=== PATIENT | female | born 1975 | race African-American/Black ===

== ENCOUNTER 2018-10-30 19:25 | Emergency (ER) | payer BC, SELFPAY ==
[2018-10-30] MEDS ORDERED: cloNIDine 0.1 MG TAB ONE (19:52)
[2018-10-30 20:18] LABS: Hemoglobin 15.7 g/dL (12.0-16.0); Mean Corpuscular HGB CONC 33.8 g/dL (32.0-36.0); Mean Corpuscular Hemoglobin 33.2 pg (27.0-31.0); Mean Corpuscular Volume 98.2 fL (78.0-98.0); Mean Platelet Volume 10.1 fL (7.4-10.4); Platelet Count 188 thou/uL (130-400); RBC Distribution Width 12.9 % (11.5-14.5); Red Blood Cell (RBC) Count 4.73 mill/uL (4.20-5.40); White Blood Cell (WBC) Count 14.2 thou/uL (4.8-10.8)
[2018-10-30 20:25] LABS: Eosinophils 5 % (0-10); Lymphocytes 46 % (21-51); MDiff Complete? YES; Monocytes 8 % (0-10); Neutrophil 41 % (42-75); Platelet Morphology Comment Appears Adequate
--- NOTE | 2018-10-30 20:31 | RAD ---
CHEST ONE VIEW: 10/30/18 HISTORY: Syncope. Headache which started this morning. COMPARISON: 11/26/11. FINDINGS: Heart size is normal. The lungs are clear. No pneumonia, edema, or pleural effusion or other acute pr ocess. IMPRESSION: No acute intrathoracic disease. POS: RRE
--- NOTE | 2018-10-30 21:01 | CT ---
HEAD CT WITHOUT IV CONTRAST: 10/30/18 HISTORY: Syncope. COMPARISON: 08/26/03. FINDINGS: No focal mass or midline shift. No intra or extra-axial hemorrhage. Minimally prominent sella turcica with appearance suggesting that of an empty or borderline empty sella. IMPRESSION: No significant acute intracranial process. No mass or bleed. Evidence for an empty or borderline empt y sella. Stable from prior study. POS: RRE
[2018-10-30 21:09] LABS: Albumin 3.7 g/dL (3.5-5.0)
[2018-10-30 21:10] LABS: Chloride 107 mmol/L (98-107); Potassium 3.9 mmol/L (3.5-5.1); Sodium 138 mmol/L (136-145)
[2018-10-30 21:11] LABS: Calcium 9.6 mg/dL (7.8-10.44)
[2018-10-30 21:12] LABS: Globulin 3.5 g/dL (2.4-3.5); Glucose 102 mg/dL (70-105); Protein, Total 7.2 g/dL (6.0-8.3)
[2018-10-30 21:13] LABS: Anion Gap 13 mmol/L (10-20); Carbon Dioxide 22 mmol/L (22-29)
[2018-10-30 21:14] LABS: Bilirubin, Total 0.4 mg/dL (0.2-1.2)
[2018-10-30 21:15] LABS: Alkaline Phosphatase 74 U/L (40-150); Calc. Creatinine Clearance 0 mL/min (70-130); Estimated GFR-MDRD 90
[2018-10-30 21:16] LABS: BUN (Urea Nitrogen) 7 mg/dL (7.0-18.7)
[2018-10-30 21:17] LABS: AST (SGOT) 42 U/L (5-34)
[2018-10-30 21:18] LABS: ALT (SGPT) 60 U/L (8-55)
== END 2018-10-30 21:32 | disposition home or self-care (01) ==
LOC: ERS 19:25
DX: I10 Essential (primary) hypertension (principal); F17.210 Nicotine dependence, cigarettes, uncomplicated
CPT/HCPCS: 36415; 70450; 71045; 80053; 83880; 84484; 85025; 93005

== ENCOUNTER 2019-02-22 01:25 | Emergency (ER) | payer SELFPAY ==
[2019-02-22 02:09] LABS: #Basophils 0.1 thou/uL (0.0-0.2); #Eosinphils 0.4 thou/uL (0.0-0.7); #Monocytes 1.2 thou/uL (0.11-0.59); #Neutrophils 5.2 thou/uL (1.40-6.50); %Basophils 0.8 % (0.0-1.0); %Monocytes 9.9 % (0.0-10.0); %Neutrophils 44.3 % (42.0-75.0); Hemoglobin 15.6 g/dL (12.0-16.0); Mean Corpuscular Volume 99.8 fL (78.0-98.0); Mean Platelet Volume 10.2 fL (7.4-10.4); Platelet Count 167 thou/uL (130-400); RBC Distribution Width 12.1 % (11.5-14.5); Red Blood Cell (RBC) Count 4.59 mill/uL (4.20-5.40); White Blood Cell (WBC) Count 11.8 thou/uL (4.8-10.8)
[2019-02-22 02:25] LABS: Bilirubin Negative (Negative); Blood, Urine Negative (Negative); Clarity Clear (Clear); Glucose, Urine (Dipstick) Normal (Negative); Leukocyte Negative Leu/uL (Negative); Nitrite Negative (Negative); Protein, Urine (Dipstick) Negative (Neg-Trace); Urobilinogen Normal mg/dL (Less than 2)
[2019-02-22 02:30] LABS: ALT (SGPT) 87 U/L (8-55); AST (SGOT) 55 U/L (5-34); Albumin 4.3 g/dL (3.5-5.0); Alkaline Phosphatase 80 U/L (40-110); Anion Gap 12 mmol/L (10-20); BUN (Urea Nitrogen) 10 mg/dL (7.0-18.7); Bilirubin, Total 0.5 mg/dL (0.2-1.2); CK (CPK) 126 U/L (29-168); Calc. Creatinine Clearance 0 mL/min (70-130); Calcium 9.5 mg/dL (7.8-10.44); Carbon Dioxide 27 mmol/L (22-29); Chloride 107 mmol/L (98-107); Estimated GFR-MDRD Greater than 90; Globulin 3.6 g/dL (2.4-3.5); Glucose 121 mg/dL (70-105); Lipase 42 U/L (8-78); Potassium 3.6 mmol/L (3.5-5.1); Protein, Total 7.9 g/dL (6.0-8.3); Sodium 142 mmol/L (136-145)
--- NOTE | 2019-02-22 09:07 | RAD ---
Exam: Chest one view HISTORY:Chest pain Comparison: 10/30/2018 FINDINGS: Cardiac silhouette: Normal Aorta: Unremarkable Pulmonary vessels: Normal Costophrenic angles: Clear LUNGS: No masses or consolidation. Pneumothorax: None Osseous abnormalities: None IMPRESSION: No acute cardiopulmonary process.
== END 2019-02-22 03:15 | disposition home or self-care (01) ==
LOC: ERS 01:25
DX: R10.12 Left upper quadrant pain (principal); I10 Essential (primary) hypertension; F17.210 Nicotine dependence, cigarettes, uncomplicated; Z79.899 Other long term (current) drug therapy; Z71.6 Tobacco abuse counseling
CPT/HCPCS: 71045; 80053; 81003; 82550; 83690; 83880; 84484; 85025; 93005; 99406